=== PATIENT | female | born 1965 | race Caucasian/White ===

== ENCOUNTER 2024-02-18 16:51 | Emergency (ER) | payer OTHER, SELFPAY ==
--- NOTE | 2024-02-18 17:07 | ED.SKABFB ---
HPI - Skin/Abscess/Foreign Bdy General Chief complaint: Skin/Abscess/Foreign Body Stated complaint: shingles on back Time Seen by Provider: 02/18/24 17:00 Source: patient Mode of arrival: ambulatory Limitations: no limitations History of Present Illness HPI narrative: Sonia is a 58-year-old female patient presenting to clinic today with complaints of possible shingles on her back. States that over the past 2-3 days she has had some stinging and burning to the mid back. States that this feels similar as to when she had shingles. She denies any known rash at this time. Is concerned about shingles as she has a grandson who is not vaccinated and a daughter Related Data Allergies Allergy/AdvReac Type Severity Reaction Status Date / Time IVP DYE Allergy Severe BP DROP, Uncoded 02/18/24 17:14 N/V OXYCODONE HCL Allergy Severe FELT LIKE Uncoded 02/18/24 17:14 BUGS CRAWLING Review of Systems Review of Systems: Pertinent positives per HPI. Patient denies any fever, chills, rash, headache, visual changes, dizziness, cough, runny nose, sore throat, shortness of breath, chest pain, palpitations, nausea, vomiting, diarrhea, constipation, abdominal pain, or any urinary issues. PMFSH Comments At the time of my signature, I reviewed and agree with the nursing past medical, surgical, social, and family history. There is no relevant family history pertinent to the patient complaint. Exam Narrative: General: Well-developed, well nourished, in no apparent distress Head: Normocephalic, atraumatic. Cardio: Regular rate and rhythm, s1 and s2 normal, no murmur appreciated. Resp: Clear to auscultation bilaterally, no rhonchi, rales, wheezing or rubs. Integumentary: [place], warm, and dry, intact without lesion, tenderness to palpation over the bra line of the back Course Course Emergency Course: Portions of this record may have been created with voice recognition software. Level of Care: Express Care Visit Vital Signs Vital signs: Vital signs reviewed MDM - Skin/Abscess/Foreign Bdy MDM Narrative Medical decision making narrative: At the time of visit patient is resting comfortably on the exam table. Patient appears to be nontoxic. Plan: No active herpes zoster rash was seen in the clinic today however patient is very concerned that she may be having internal shingles or the start of shingles again. Will send in prescription for acyclovir and have her follow-up with her primary care doctor Supportive measures were discussed with the patient and they voiced understanding discharge instructions and agrees to treatment plan. Return precautions reviewed Differential Diagnosis Differential diagnosis: Likely abscess of skin or subcutaneous tissue, viral exanthem, urticaria, herpes zoster, allergic reaction to drug, cellulitis, eczema, insect bites, impetigo and contact dermatitis Discharge Plan Discharge Clinical Impression: Paresthesia of skin, History of herpes zoster Patient Disposition: Home, Self-Care Condition: Stable Instructions: Antibiotic Form, Paresthesia (ED) Additional Instructions: Take acyclovir as prescribed If rash develops keep the lesions covered until they crust over May put lidocaine patch in the area of discomfort Tylenol/ Motrin as needed for pain Follow-up with your primary care as needed Prescriptions: New acyclovir 800 mg tablet 800 mg PO Q4H 7 Days Qty: 42 0RF Rx Instructions: while awake; give 5 doses in 24 hours Follow-up/Referrals: Vijay,Otis Pagan MD [Primary Care Provider] - Time of Disposition: 17:14 Quality NIHSS Nursing Documentation ED NIHSS nursing documentation: reviewed/agree
[2024-02-18 17:08] VITALS: BP 135/65; PULSE 51; RESP 15; TEMP 36.3; O2SAT 100
== END 2024-02-18 17:33 | disposition home or self-care (01) ==
PROVIDERS: Emergency Provider Nurse Practitioner Family; PCP Pediatrics
DX: R20.2 Paresthesia of skin (principal); Z86.19 Personal history of other infectious and parasitic diseases
CPT/HCPCS: 99203; G0463